=== PATIENT | female | born 1975 | race Native Hawaiian/Other Pacific Islander ===

== ENCOUNTER 2017-07-06 11:27 | Outpatient (CLI) | payer OTHER | END 2017-07-06 22:26 | disposition home or self-care (01) | LOC: RAD 11:27 | DX: M47.896 Other spondylosis, lumbar region (principal); M85.88 Other specified disorders of bone density and structure, other site ==

== ENCOUNTER 2022-11-24 20:15 | Emergency (ER) | payer OTHER ==
[~2022-11-24] VITALS: Ht 152.4 cm; Wt 67.1 kg
[2022-11-24 20:15] VITALS: TEMP 98
[2022-11-24 20:57] LABS: PLATELET COUNT 239 K/uL (152-353)
[2022-11-24 21:07] LABS: PARTIAL THROMBOPLASTIN TIME 30.8 SECONDS (23.9-36.7); POTASSIUM 3.9 mmol/L (3.6-5.2)
[2022-11-25 05:59] LABS: POTASSIUM 3.2 mmol/L (3.6-5.2)
[2022-11-25 07:01] VITALS: BP 98/68
== END 2022-11-25 07:05 | disposition short-term general hospital (02) ==
LOC: ED 20:15
PROVIDERS: Family Medicine
DX: I50.9 Heart failure, unspecified (principal); F17.200 Nicotine dependence, unspecified, uncomplicated
CPT/HCPCS: 36600; 80048; 80053; 80307; 81000; 82550; 82805; 83690; 83880; 84484; 85027; 85610; 85730; 93005; 96374; 96375; 96376; 99284; J1940; J2060